=== PATIENT | female | born 1955 | race Caucasian/White ===

== ENCOUNTER → 2016-11-22 | Day surgery (SDC) | payer MEDICARE ==
[~2016-11-22] VITALS: Ht 152.4 cm; Wt 87.1 kg
== END | disposition home or self-care (01) ==
LOC: FAS 10:14
DX: K21.0 Gastro-esophageal reflux disease with esophagitis (principal); K22.70 Barrett's esophagus without dysplasia; K44.9 Diaphragmatic hernia without obstruction or gangrene; M19.90 Unspecified osteoarthritis, unspecified site; G47.30 Sleep apnea, unspecified; Z90.710 Acquired absence of both cervix and uterus; Z79.899 Other long term (current) drug therapy; Z88.8 Allergy status to other drugs, medicaments and biological substances; Z88.5 Allergy status to narcotic agent
CPT/HCPCS: 88305; J2704

== ENCOUNTER 2021-07-30 15:38 | Inpatient (IN) | payer MEDICARE ==
[~2021-07-30] VITALS: Ht 152.4 cm; Wt 90.7 kg
[~2021-07-30 15:38] MED LIST: PEPCID AC20 MG PO; REQUIP1 MG PO; SYNTHROID88 MCG PO
[2021-07-30 16:50] LABS: BASOPHIL 0.3 % (0-2); EOSINOPHIL 0 % (0-7); HCT 40.3 % (37.0-47.0); MCH 28.7 pg (25.0-31.0); MCHC 32.3 g/dL (32.0-36.0); MPV 10.4 fL (6.0-9.5); NEUTROPHIL 66.3 % (41-80); NRBC 0; PLT 180 K/uL (150-400); RBC 4.53 M/uL (4.20-5.40); RDW 14.3 % (11.5-14.0)
[2021-07-30 16:53] LABS: LYMPHOCYTE 24.1 % (15-48)
[2021-07-30 17:08] LABS: BILIRUBIN - TOTAL 0.6 mg/dL (0.2-1.0); BUN/CREAT RATIO (CALC) 24.1 RATIO; CREATININE 0.58 mg/dL (0.51-0.95); GLOBULIN (CALCULATION) 3.5 g/dL; POTASSIUM 3.1 mmol/L (3.5-5.1); TOTAL PROTEIN 6.5 g/dL (6.4-8.2)
--- NOTE | 2021-07-30 21:50 | NUR ---
PT STATES IS LOOKING TO BE PLACED AT [facility].
[2021-07-30] MEDS ORDERED: COZAAR50 MG PO (22:01)
[2021-07-30] MEDS ORDERED: PREDNISONE5 MG PO ×2 (22:04→22:05)
--- NOTE | 2021-07-31 00:50 | NUR ---
PER PT: EMERGENCY CONTACTS: TIFFANY TERRY (SISTER) [phone] & (BROTHER) PIPER BARR [phone]
[2021-07-31] MEDS ORDERED: CALTRATE 600 +1 EAC1 PO (00:54)
[2021-07-31] MEDS ORDERED: IRON325 M1 PO (00:54)
[2021-07-31] MEDS ORDERED: ASCORBIC ACID500 MG PO (00:55)
[2021-07-31] MEDS ORDERED: B12 ACTIVE1000 MCG PO (00:55)
[2021-07-31] MEDS ORDERED: VITAMIN D325 MC2 PO (00:56)
[2021-07-31] MEDS ORDERED: POTASSIUM99 M1 PO (00:58)
[2021-07-31 10:10] LABS: BASOPHIL 0 % (0-2); EOSINOPHIL 0 % (0-7); HCT 40.5 % (37.0-47.0); HGB 12.8 g/dl (12.5-16.0); LYMPHOCYTE 28.5 % (15-48); MCH 28.4 pg (25.0-31.0); MCHC 31.6 g/dL (32.0-36.0); MPV 10.6 fL (6.0-9.5); NEUTROPHIL 61.1 % (41-80); NRBC 0; PLT 176 K/uL (150-400)
[2021-07-31 10:24] LABS: WBC 2.5 K/uL (4.0-10.5)
[2021-07-31 10:40] LABS: ALBUMIN 2.7 g/dL (3.4-5.0); BILIRUBIN - TOTAL 0.4 mg/dL (0.2-1.0); BUN/CREAT RATIO (CALC) 31.8 RATIO; C-REACTIVE PROTEIN 4.7 mg/dL (<=0.90); CREATININE 0.44 mg/dL (0.51-0.95); FT4 (FREE T4) 1.6 ng/dL (0.76-1.46); GLOBULIN (CALCULATION) 3.5 g/dL; MAGNESIUM 2.1 mg/dL (1.8-2.4); PHOSPHORUS 2.7 mg/dL (2.6-4.7); POTASSIUM 2.9 mmol/L (3.5-5.1); TOTAL PROTEIN 6.2 g/dL (6.4-8.2)
[2021-08-01 06:13] LABS: BASOPHIL 0.2 % (0-2); EOSINOPHIL 0 % (0-7); HCT 38.6 % (37.0-47.0); HGB 11.8 g/dl (12.5-16.0); LYMPHOCYTE 22.2 % (15-48); MCH 28.5 pg (25.0-31.0); MCHC 30.6 g/dL (32.0-36.0); MCV 93.2 fL (78.0-100.0); MONOCYTE 8.1 % (0-12); MPV 11.3 fL (6.0-9.5); NEUTROPHIL 68.8 % (41-80); NRBC 0; PLT 167 K/uL (150-400); RBC 4.14 M/uL (4.20-5.40)
[2021-08-01 06:18] LABS: WBC 5.9 K/uL (4.0-10.5)
[2021-08-01 06:30] LABS: BUN/CREAT RATIO (CALC) 34.1 RATIO; C-REACTIVE PROTEIN 2.3 mg/dL (<=0.90); CREATININE 0.44 mg/dL (0.51-0.95); MAGNESIUM 2.1 mg/dL (1.8-2.4); POTASSIUM 4.3 mmol/L (3.5-5.1)
[2021-08-01] MEDS ORDERED: MEDROL 4MG DOSEP4 MG PO (15:20)
[2021-08-01] MEDS ORDERED: VENTOLIN HFA IN18 GM INH (15:27)
[2021-08-01] MEDS ORDERED: ATROVENT HFA12.9 GM INH (15:27)
[2021-08-01] MEDS ORDERED: ZPAK PO (15:27)
--- NOTE | 2021-08-01 16:52 | NUR ---
PT D/C TO HOME IV REMOVED, TELY REMOVED, D/C PAPERS GIVEN TO PATIENT WITH INSTRUCTIONS, PT STATED THAT SHE UNDERSTOOD. PT LEAVING BY WAY OF W/C TO CAB TO HOME
--- NOTE | 2021-08-01 16:54 | NUR ---
@1200 PT HAD WALK TEST R/A 91%. INFORMED.
== END 2021-08-01 17:12 | disposition home or self-care (01) | DRG 177 ==
LOC: FER 15:38 → FMS 18:59
PROVIDERS: Emergency Medicine; Nurse Practitioner; ADMIT Internal Medicine
PROC: XW033E5 Introduction of Remdesivir Anti-infective into Peripheral Vein, Percutaneous Approach, New Technology Group 5 (ICD-10-PCS; principal; 2021-07-30)
PROC: 3E0333Z Introduction of Anti-inflammatory into Peripheral Vein, Percutaneous Approach (ICD-10-PCS; 2021-07-30)
PROC: 8E0ZXY6 Isolation (ICD-10-PCS; 2021-07-30)
DX: U07.1 COVID-19 (principal); J12.82 Pneumonia due to coronavirus disease 2019; J96.01 Acute respiratory failure with hypoxia; I10 Essential (primary) hypertension; E03.9 Hypothyroidism, unspecified; E87.6 Hypokalemia; J20.9 Acute bronchitis, unspecified; K21.9 Gastro-esophageal reflux disease without esophagitis; G25.81 Restless legs syndrome; M79.7 Fibromyalgia; D50.9 Iron deficiency anemia, unspecified; E55.9 Vitamin D deficiency, unspecified; M35.3 Polymyalgia rheumatica; Z96.651 Presence of right artificial knee joint; F17.210 Nicotine dependence, cigarettes, uncomplicated; Z88.5 Allergy status to narcotic agent; Z90.49 Acquired absence of other specified parts of digestive tract; Z98.84 Bariatric surgery status; Z90.710 Acquired absence of both cervix and uterus; Z90.722 Acquired absence of ovaries, bilateral
CPT/HCPCS: 36415; 36600; 74022; 80048; 80053; 82728; 82803; 83036; 83605; 83615; 83690; 83735; 84100; 84145; 84439; 84443; 85025; 85379; 86140; 94010; 94640; 94760; C9399; J1100; J1650; J2405; J3480; J7030; J7050; Q9967; U0002